=== PATIENT | male | born 1975 ===

== ENCOUNTER 2021-05-08 09:47 | Emergency (ER) | payer SELFPAY ==
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
[2021-05-08 11:31] VITALS: BP 167/78
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
== END 2021-05-08 12:23 | disposition home or self-care (01) ==
LOC: ED 09:47
DX: M54.5 Low back pain (principal); Z79.899 Other long term (current) drug therapy; V49.49XA Driver injured in collision with other motor vehicles in traffic accident, initial encounter; Y93.89 Activity, other specified; Y92.410 Unspecified street and highway as the place of occurrence of the external cause; Y99.8 Other external cause status
CPT/HCPCS: 72100